=== PATIENT | female | born 1990 | race Caucasian/White ===

== ENCOUNTER 2017-05-08 05:52 | Emergency (ER) | payer OTHER ==
[~2017-05-08] VITALS: Ht 177.8 cm; Wt 65.9 kg
[2017-05-08 05:55] VITALS: BP 120/78; PULSE 112; RESP 20; O2SAT 99
--- NOTE | 2017-05-08 06:21 | ED.REPORT ---
HPI-Abd Pain F Under 41 Date of Service May 08, 2017 ED Provider: Yuri Chapa MD Patient is a 27 year old female with a hx of migraines who presents to the ED complaining of vomiting onset 0200 this morning. Associated symptoms include abdominal cramping,dizziness, and lower back pain. Pt also reports a mild headache over the last 2 days for which she has been taking imitrex. She denies hematemesis, diarrhea, or any other symptoms. She has no known sick contacts. Pt started accutane 3 days ago. Nursing Notes Stated Complaint: VOMITING ALL NIGHT Chief Complaint: Female Abdominal Pain Nursing Notes Reviewed: Yes Allergies: Coded Allergies: No Known Allergies (Unverified , 05/08/17) Scheduled Ethinyl Estradiol/Drospirenone 0.02-3 mg (Gianvi 0.02-3 mg) 1 Each Tablet 1 TABLET PO DAILY Topiramate (Topamax) 100 Mg Tablet 100 MG PO HS Topiramate (Topamax) 50 Mg Tablet 50 MG PO DAILYWM Scheduled PRN Cyclobenzaprine (Cyclobenzaprine) 5 Mg Tablet 5 MG PO HS PRN PRN Spasm Ondansetron ODT (Zofran ODT) 4 Mg Tablet 4 MG PO Q4H PRN PRN For Nausea Polyethylene Glycol 3350 (Miralax) 17 Gm Powd.pack 17 GM PO HS PRN PRN For Constipation General Time Seen by MD: 06:09 Chief Complaint Vomiting moderate Hx Obtained From: Patient Arrived By: Walk-in Sudden in Onset?: Yes Onset Occurred: 1 - 4 hours ago Symptom Duration: Since onset Quality: Cramping Severity: Current: Moderate Severity: Maximum: Moderate Past Medical History Past Medical History chronic migraines Past Surgical History none reported Smoking History Unknown if Ever Smoker Social History Other Social History: Good social support Ambulatory Status Independent Review of Systems GI: Reports: Abdominal pain, Vomiting, Denies: Diarrhea, Hematemesis Complete sys rev & neg: except as marked. Neurologic: Reports: Dizziness, Headache Physical Exam Initial Vital Signs Vital Signs (First) Date Time Temp Pulse Resp B/P Pulse Ox O2 Delivery O2 Flow Rate FiO2 05/08/17 05:55 112 20 120/78 99 Room Air 05/08/17 09:27 37.2 Initial VS: Reviewed, Vital signs abnormal Head / Eyes: Atraumatic, Normocephalic Neck: Full range of motion Skin: Warm, Dry Neurologic: Alert, Oriented, Nonfocal General/Constitutional: Awake, Alert, No acute distress Respiratory / Chest: Atraumatic, Breath sounds NL, Breath sounds = bilat, No respiratory distress Cardiovascular: Heart rate NL, Regular rhythm, Heart sounds NL, No murmurs Abdomen: Atraumatic, Soft, Non-tender, No guarding, No rebound Back: No CVA tenderness Diffuse low back tenderness Lower Extremity / Pelvis / MS: No edema Interpretation & Diagnostics Lab Results Interpretation Result Diagram: 05/08/17 0640 05/08/17 0640 Test 05/08/17 06:30 05/08/17 06:40 Urine Color Yellow (YELLOW) Urine Appearance Hazy (CLEAR,HAZY) Urine pH 5.5 (5.0-8.0) Urine Specific [place] 1.030 (1.003-1.035) Urine Protein Negativemg/dL (NEG,TRACE) Urine Glucose (UA) Negativemg/dL (NEGATIVE) Urine Ketones Negativemg/dL (NEGATIVE) Urine Occult Blood Negative (NEGATIVE) Urine Nitrite Negative (NEGATIVE) Urine Bilirubin Negative (NEGATIVE) Urine Urobilinogen Normalmg/dL (NORMAL) Urine Leukocyte Esterase Trace (NEGATIVE) Urine RBC 0-2/hpf (0-2) Urine WBC 0-5/hpf (0-5) Urine Epithelial Cells Few/hpf (NONE-MOD) Urine Crystals Amorphous urates (NONE Urine Bacteria Few/hpf (NONE-FEW) Urine Hyaline Casts None/lpf (NONE) Urine Granular Casts None seen (NONE SEEN) Urine Waxy Casts None seen (NONE SEEN) Urine Red Blood Cell Casts None seen (NONE SEEN) Urine White Blood Cell Casts None seen (NONE SEEN) Urine Mucus None seen (None Seen) Urine Trichomonas None seen (NONE SEEN) Urine Yeast None (NONE SEEN) Urinalysis Comment None Urine Culture Reflexed Indicated White Blood Count 15.5th/mm3 (3.8-10.1) Red Blood Count 5.04mil/mm3 (3.90-5.20) Hemoglobin 14.9g/dL (12.0-15.6) Hematocrit 43.8% (35.0-46.0) Mean Corpuscular Volume 86.9fL (81-100) Mean Corpuscular Hemoglobin 29.6pg (27.0-35.0) Mean Corpuscular Hemoglobin Concent 34.0% (32.0-37.0) Red Cell Distribution Width 12.9% (12.3-15.4) Platelet Count 216bil/L (150-400) Neutrophils (%) (Auto) 91.8% (40-74) Lymphocytes (%) (Auto) 1.5% (14-46) Monocytes (%) (Auto) 6.2% (4-12) Eosinophils (%) (Auto) 0.3% (0-5) Basophils (%) (Auto) 0.1% (0-3) Sodium Level 142mEq/L (134-144) Potassium Level 4.0mEq/L (3.5-5.2) Chloride Level 109mEq/L (97-108) Carbon Dioxide Level 19mmol/L (18-29) Blood Urea Nitrogen 14mg/dL (6-20) Creatinine 0.76mg/dL (0.57-1.00) Estimat Glomerular Filtration Rate 132mL/min (>59) Glucose Level 122mg/dL (60-99) Calcium Level 9.0mg/dL (8.5-10.1) Magnesium Level 1.8mg/dL (1.6-2.6) Total Bilirubin 0.3mg/dL (0.0-1.2) Aspartate Amino Transf (AST/SGOT) 18U/L (0-50) Alanine Aminotransferase (ALT/SGPT) 15U/L (0-32) Alkaline Phosphatase 45U/L (25-150) Total Protein 7.7g/dL (6.4-8.4) Albumin 4.4g/dL (3.4-5.0) Lipase 43U/L (13-60) Hold Treviño Top Tube Received (Received) CT Abd / Pelvis Interpretation IMPRESSION: 1. No imaging explanation for right lower quadrant abdominal pain. The appendix appears normal. 2. Significant stool throughout the distal colon would raise the question of constipation. Dictated by: Hiram Gray M.D. on 05/08/2017 at 8:54 Approved by: Hiram Gray M.D. on 05/08/2017 at 9:01 Study type: Abdominal CT IV contrast Interpretation / Wet Read by: Interpret - Radiologist Re-Eval/Medical Decision Med Decision/Clinical Course Med Decision/Clinical Course: 27-year-old female with multiple episodes of vomiting and abdominal pain times one day. She had mild lower abdominal tenderness increased in the right lower quadrant. CT scan was performed which showed no appendicitis. Her nausea vomiting resolved. She is not . Urine does not suggest UTI. Likely gastroenteritis. She felt much better with discharged home with return precautions. Re-Evaluation/Progress #1: Time of Eval: 08:04 )( Re-Eval Abdomen: Soft Re-Evaluation/Progress Note: Rechecked pt who is feeling slightly better but is mildly tender to palpation in the RLQ. Discussed lab results and offered further workup. Pt agrees to CT scan. Re-Evaluation/Progress #2: Time of Eval: 09:14 )( Re-Eval Abdomen: Soft Re-Evaluation/Progress Note: Discussed CT scan and plan for discharge. Patient understands and agrees with plan. All questions addressed at this time. Counseled Regarding: Diagnosis, Lab results, Need for follow-up, When/why to return to ED Discharge & Departure Primary Impression: Vomiting Vomiting type: unspecified Vomiting Intractability: unspecified Nausea presence: unspecified Qualified Code: R11.10 - Vomiting, unspecified Additional Impressions: Gastroenteritis Constipation Constipation type: unspecified constipation type Qualified Code: K59.00 - Constipation, unspecified Disposition: Home Discharge Condition All VS Reviewed: Yes Condition: Improved Patient Instructions: Gastroenteritis (ED) Additional Instructions: Thank you for entrusting us with your care. Your labs, CT scan, and examination are reassuring. We did not find a dangerous cause for your symptoms at this time. Your urine does not appear to be infected and you do not have a detectable appendicitis. Follow up with your primary doctor in the next 1-2 days for re-evaluation. Return to the emergency department if you experience bloody stools or vomit, high fever, increasing abdominal pain especially in right lower quadrant, or any other new or concerning symptoms to you. Referrals: Dora James (PCP) Germán Attestation Portions of this note were transcribed by Sirisha Patterson. I, Dr. Chapa personally performed the history, physical exam and medical decision-making; I reviewed and confirmed the accuracy of the information in the transcribed note. Signed by: Germán Penny, 05/08/17 copies to: Dora James Ben M MD May 08, 2017 06:21 SIRISHA PATTERSON May 08, 2017 06:30
[2017-05-08] MEDS ORDERED: 0.9% Sodium Chloride 1,000 ML IV ONE (06:30)
[2017-05-08] MEDS ORDERED: MetoCLOpramide 5 mg/mL 2 mL Inj IVPUSH ONE (06:30)
[2017-05-08] MEDS: Ondansetron 2 mg/mL 2 mL Inj IVPUSH PRN ×2 (06:46→09:04)
[2017-05-08 06:53] LABS: APPEARANCE,URINE HAZY (CLEAR,HAZY); COLOR,URINE YELLOW (YELLOW); OCCULT BLOOD,URINE NEGATIVE (NEGATIVE); PH,URINE 5.5 (5.0-8.0); UROBILINOGEN,URINE NORMAL (NORMAL)
[2017-05-08 06:58] LABS: BASOPHILS % (AUTO) 0.1 % (0-3); EOSINOPHILS % (AUTO) 0.3 % (0-5); MONOCYTES % (AUTO) 6.2 % (4-12); Mean Corpuscular Hemoglobin 29.6 pg (27.0-35.0); Mean Corpuscular Volume 86.9 fL (81-100); NEUTROPHILS % (AUTO) 91.8 % (40-74); Platelet Count 216 bil/L (150-400)
[2017-05-08] MEDS ORDERED: ETHI1TAB16 PO (07:19)
[2017-05-08] MEDS ORDERED: TOPI50TA32 PO (07:19)
[2017-05-08] MEDS ORDERED: TOPI100T32 PO (07:19)
[2017-05-08] MEDS ORDERED: CYCL5TAB PO (07:19)
[2017-05-08 07:37] LABS: Magnesium 1.8 mg/dL (1.6-2.6)
--- NOTE | 2017-05-08 09:03 | DRSVH ---
PROCEDURE: CT ABDOMEN AND PELVIS WITH CONTRAST ([id number]) INDICATIONS: 27 year-old female with right lower quadrant abdominal pain. TECHNIQUE: After the administration of intravenous contrast, 5 mm thick sections acquired from the diaphragm to the symphysis. 5 mm coronal and sagittal reformats were acquired. For radiation dose reduction, the following was used: automated exposure control, adjustment of mA and/or kV according to patient cristela gregorio. COMPARISON: [facility], CT, ABD/PELVIS W/CON (PNL), 03/23/2012, 12:31. FINDINGS: Image quality: Excellent. ABDOMEN: Lung bases: Lung bases are clear. Heart size is normal. Solid organs: Liver and spleen are normal in size. On axial image 28, a punctate hypodense lesion i s now present within the right hepatic lobe, too small to further characterize but likely a tiny cyst . Gallbladder wall thickness is normal. Biliary system is non dilated. Pancreas enhances normally. No adrenal nodules. Kidneys demonstrate normal size and enhancement, without hydronephrosis. Peritoneum and bowel: Bowel loops demonstrate normal wall thickness and caliber. The appendix appea rs normal in caliber on axial image 65. There is significant stool throughout the distal colon. No fr ee fluid or air. Nodes and vessels: No retroperitoneal or mesenteric adenopathy by size criteria. Aorta and inferior vena cava are normal in size. Miscellaneous: No ventral hernias. PELVIS: Genitourinary: Bladder wall thickness is normal. Uterus and ovaries are normal in size. Miscellaneous: No inguinal hernias or adenopathy. Bones: No suspicious bony lesions. No vertebral body compression fractures. IMPRESSION: 1. No imaging explanation for right lower quadrant abdominal pain. The appendix appears normal. 2. Significant stool throughout the distal colon would raise the question of constipation. Dictated by: Hiram Gray M.D. on 05/08/2017 at 8:54 Approved by: Hiram Gray M.D. on 05/08/2017 at 9:01
[2017-05-08] MEDS ORDERED: POLY17PO6 PO (09:11)
[2017-05-08] MEDS ORDERED: ONDA4TAB9 PO (09:22)
[2017-05-08 09:27] VITALS: BP 107/70; PULSE 110; RESP 14; O2SAT 100
== END 2017-05-08 09:30 | disposition home or self-care (01) ==
LOC: SED 05:52
DX: K52.9 Noninfective gastroenteritis and colitis, unspecified (principal); K59.00 Constipation, unspecified; G43.909 Migraine, unspecified, not intractable, without status migrainosus; M54.5 Low back pain; R51 Headache
CPT/HCPCS: 36415; 74177; 80053; 81000; 81025; 83690; 83735; 85025; 87086; 87088; 96361; 96374; 96375; 96376; 99285; J2270; J2405; J7030; Q9967